=== PATIENT | female | born 1970 | race Caucasian/White ===

== ENCOUNTER 2021-02-05 08:34 | Emergency (ER) | payer OTHER, SELFPAY ==
[~2021-02-05] VITALS: Ht 160 cm; Wt 90.7 kg
[2021-02-05 08:34] VITALS: BP 184/84
--- NOTE | 2021-02-05 08:34 | NUR ---
Patient BIBA BLS, transferred to bed 1. RN evaluating the patient at bedside.
--- NOTE | 2021-02-05 08:55 | NUR ---
Note undone in EDM - 02/05/21 at 0915 by ABISAI RECEIVED 50Y/O FEMALE TO BED 11, C/O CHEST PAIN ONSET YESTERDAY, POINTS TO UPPER LEFT CHEST WALL, REPRODUCED WITH PRESSURE, ENDORSES PERIODS OF SOB, ENDORSES FEELING CLAMMY AT THIS TIME PATIENTS SKIN IS WARM AND DRY, RESP EVEN AND UNLABORED, CLEAR BREATH SOUNDS ON AUSCULTATION. ABDOMEN IS SOFT AND NON DISTENDED. MOVES ALL EXTREMITES AND WALKED IN WITH UPRIGHT STEADY GAIT. PATIENT ENDORSES FEELING ANXIOUS. PLACED ON BUCK PRESSER SHOWING NORMAL SINUS RHYTHM WITH RIGHT BUNDLE BRANCH BLOCK. TECH IN FOR EKG, DR PEREZ AT BEDSIDE FOR EXAM AND EVAL.
--- NOTE | 2021-02-05 09:25 | NUR ---
50 y/o F BIBA from home with c/o Covid-like symptoms. Patient A&Ox4, ambulatory, states productive cough, congestion, SOB, body aches, fever x 5 days s/p 1st Covid vaccine x 2 weeks ago. Patient also reports suprapubic pain 10/10, non-radiating. Patient unable to provide which vaccination received. Per EMS, pt states she called 911 d/t her SpO2 <94%. Patient presented with SpO2 98% on room air; blood pressure 184/84, RR even/unlabored; lung sounds CTA. Patient reports sick at home, states Tylenol prior to arrival with minor relief. Patient states nausea, denies dizziness, vomiting, diarrhea. patient monitor in place and pt placed into a gown. Bed locked in lowest position, side rails x 1, call light in reach. PMH/Sx/Meds: HTN NKA
--- NOTE | 2021-02-05 09:30 | NUR ---
Dr. Avila is evaluating patient at bedside.
--- NOTE | 2021-02-05 09:33 | NUR ---
EMT AT BEDSIDE FOR EKG
--- NOTE | 2021-02-05 09:36 | NUR ---
RT AT BEDSIDE
--- NOTE | 2021-02-05 09:40 | NUR ---
Covid armin swab, novel swab, RSV, Influenza swab collected, handed to CPT Sebastián.
--- NOTE | 2021-02-05 09:40 | NUR ---
RAD at bedside.
--- NOTE | 2021-02-05 10:10 | NUR ---
Lab at bedside for blood cultures and sample.
[2021-02-05 10:21] LABS: BASOPHILS # (AUTO) 0.1 K/uL (0.00-0.22); BASOPHILS % (AUTO) 0.4 % (0.0-2.0); EOSINOPHILS % (AUTO) 0.1 % (0.0-4.0); HEMATOCRIT 38.5 % (36-48); HEMOGLOBIN 13.1 g/dL (12.0-16.0); LYMPHOCYTES % (AUTO) 8.4 % (20.5-51.1); MEAN CORPUSCULAR HEMOGLOBIN 31 pg (27-31); MEAN CORPUSCULAR HGB CONC 34 g/dL (33-37); MEAN CORPUSCULAR VOLUME 89.3 fL (80-94); MONOCYTES # (AUTO) 0.4 K/uL (0.8-1.0); MONOCYTES % (AUTO) 2.9 % (1.7-9.3); NEUTROPHILS # (AUTO) 10.5 K/uL (1.8-7.7); NEUTROPHILS % (AUTO) 88.2 % (42.2-75.2); PLATELET COUNT (AUTO) 240 K/uL (140-450); RED CELL DISTRIBUTION WIDTH 13.8 % (11.6-13.7); WHITE BLOOD COUNT (AUTO) 11.9 K/uL (4.8-10.8)
[2021-02-05 10:22] LABS: RSV NEGATIVE (NEGATIVE)
--- NOTE | 2021-02-05 10:22 | NUR ---
Spoke with Marbella (daughter) [phone] Marbella translated on behalf of patient; patient states she feels hot and fatigued. SpO2 98% on room air. equipment monitor phototypesetting remains in place. Bed locked in lowest position, side rails x 1, call light in reach.
--- NOTE | 2021-02-05 10:22 | NUR ---
Provided bedpan for urine sample attempt.
[2021-02-05 10:36] LABS: PROTHROMBIN TIME 9.3 secs (10.8-13.4)
[2021-02-05 10:37] LABS: LACTATE DEHYDROGENASE 239 U/L (81-234)
[2021-02-05 10:39] LABS: ALBUMIN 3.5 g/dL (3.4-5.0); ANION GAP 14.8 (8-16); CARBON DIOXIDE 22.5 mmol/L (21-32); CREATININE 0.8 mg/dL (0.6-1.3); POTASSIUM 3.3 mmol/L (3.5-5.1); TOTAL BILIRUBIN 0.4 mg/dL (0.0-1.0)
[2021-02-05] MEDS ORDERED: AZITHROMYCIN 500 MG in DEXTROSE 5% 250 ML IV ONE (10:50)
[2021-02-05 10:53] LABS: C-REACTIVE PROTEIN QUANT 14.6 mg/dL (0.0-0.9)
--- NOTE | 2021-02-05 11:14 | NUR ---
UA collected via bedpan, handed to CPT Sebastián at ER bedside.
[2021-02-05] MEDS ORDERED: cefTRIAXone 1,000 MG VIAL ONE (11:15)
[2021-02-05] MEDS ORDERED: AZITHROMYCIN 500 MG INJ VIAL IV ONE (11:56)
--- NOTE | 2021-02-05 12:06 | NUR ---
Patient states nausea and pain 10/10, Dr. Avila made aware and orders placed.
[2021-02-05] MEDS ORDERED: MORPHINE SULFATE 4 MG/ML SYR ONE (12:08)
[2021-02-05] MEDS ORDERED: ONDANSETRON 4 MG/2 ML VIAL IVP ONE (12:10)
[2021-02-05] MEDS ORDERED: MORPHINE SULFATE 4 MG/ML SYR IVP ONE (12:10)
[2021-02-05 12:16] LABS: APPEARANCE,URINE CLEAR (CLEAR); BILIRUBIN,URINE NEGATIVE (NEGATIVE); BLOOD, URINE NEGATIVE (NEGATIVE); COLOR,URINE YELLOW (YELLOW); LEUKOCYTE ESTERASE ,URINE NEGATIVE (NEGATIVE); NITRITE, URINE NEGATIVE (NEGATIVE); PH,URINE 5.5 (5.0-9.0); UGLUCOSE 3+ (NEGATIVE)
--- NOTE | 2021-02-05 12:40 | NUR ---
GAVE REPORT TO JOSE CALVILLO FOR TRANSFER TO [facility]. PT TO BE PICKED UP [phone]
--- NOTE | 2021-02-05 12:43 | NUR ---
Patient reports positive relief to pain; 2/10.
--- NOTE | 2021-02-05 14:25 | NUR ---
[facility] AT BEDSIDE FOR TRANSPORT
[2021-02-05 14:40] VITALS: BP 161/84
--- NOTE | 2021-02-05 14:40 | NUR ---
Patient to be transferred to [facility] ER. Is being transferred due to INSURANCE REASONS. Receiving facility has accepting physician and available space. ER physician has signed transfer form. Patient or responsible green party has agreed to transfer and signed form. Patient belongings inventoried and will be sent with patient. Copy of nursing notes, lab reports, EKG, Physicians Orders and X-rays to be sent with patient. Report called to JOSE CALVILLO at receiving facility. [facility] ambulance service has been called for transfer.
--- NOTE | 2021-02-07 05:09 | NUR ---
LATE ENTRY- Positive COVID-19 test results were received from lab. A copy of the test results were placed in infection control mailbox.
== END 2021-02-05 14:40 | disposition short-term general hospital (02) ==
LOC: MED 08:34
DX: R50.9 Fever, unspecified (principal); Z20.822 Contact with and (suspected) exposure to COVID-19
CPT/HCPCS: 36600; 71045; 80053; 81003; 82550; 82728; 82803; 83605; 83615; 83880; 84484; 85025; 85379; 85384; 85610; 85730; 86140; 87086; 87420; 87426; 87804; 93005; 96365; 96367; 96375; 99291; J0456; J0696; J2270; J2405; U0003

== ENCOUNTER 2024-01-11 17:13 | Emergency (ER) | payer OTHER ==
[~2024-01-11] VITALS: Ht 162.6 cm; Wt 82.7 kg
[2024-01-11 17:39] VITALS: BP 160/85; PULSE 105; RESP 18; TEMP 98.6; O2SAT 98
[2024-01-11 18:10] LABS: BASOPHILS % (AUTO) 0.6 % (0.0-2.0); EOSINOPHILS # (AUTO) 0.2 K/uL (0-0.4); EOSINOPHILS % (AUTO) 2.1 % (0.0-4.0); HEMATOCRIT 38.1 % (36-48); HEMOGLOBIN 13.4 g/dL (12.0-16.0); LYMPHOCYTES # (AUTO) 2.1 K/uL (2.5-16.5); LYMPHOCYTES % (AUTO) 28.6 % (20.5-51.1); MEAN CORPUSCULAR HEMOGLOBIN 31 pg (27-31); MEAN CORPUSCULAR HGB CONC 35 g/dL (33-37); MEAN CORPUSCULAR VOLUME 86.9 fL (80-94); MONOCYTES # (AUTO) 0.5 K/uL (0.8-1.0); MONOCYTES % (AUTO) 6.6 % (1.7-9.3); NEUTROPHILS # (AUTO) 4.5 K/uL (1.8-7.7); NEUTROPHILS % (AUTO) 62.1 % (42.2-75.2); PLATELET COUNT (AUTO) 379 K/uL (140-450); RED BLOOD CELL COUNT(AUTO) 4.38 MIL/uL (4.20-5.40); RED CELL DISTRIBUTION WIDTH 13.2 % (11.6-13.7); WHITE BLOOD COUNT (AUTO) 7.3 K/uL (4.8-10.8)
[2024-01-11 18:50] LABS: APPEARANCE,URINE SL CLOUDY (CLEAR); BILIRUBIN,URINE NEGATIVE (NEGATIVE); BLOOD, URINE 3+ (NEGATIVE); LEUKOCYTE ESTERASE ,URINE NEGATIVE (NEGATIVE); NITRITE, URINE NEGATIVE (NEGATIVE); PROTEIN,URINE NEGATIVE (NEGATIVE); UGLUCOSE 3+ (NEGATIVE); UROBILINOGEN,URINE 0.2 EU/dL (0.2 - 1)
[2024-01-11 18:57] LABS: RBC,URINE TOO NUMEROUS TO COUN /HPF (0-5); WBC,URINE 0-5 /HPF (0-5)
[2024-01-11 18:58] LABS: BACTERIA,URINE FEW /HPF (None Seen); COLOR,URINE AMBER (YELLOW); SQUAMOUS EPITHELIAL CELL,UR 4-10 (MOD) /LPF (0-3 (FEW))
[2024-01-11 23:47] VITALS: BP 156/87; PULSE 100; RESP 18; TEMP 98.2; O2SAT 98
== END 2024-01-11 23:47 | disposition home or self-care (01) ==
LOC: MED 17:13
DX: D25.9 Leiomyoma of uterus, unspecified (principal); N93.9 Abnormal uterine and vaginal bleeding, unspecified; I10 Essential (primary) hypertension; Z79.899 Other long term (current) drug therapy
CPT/HCPCS: 36415; 76830; 81001; 85025; 99284

== ENCOUNTER 2024-01-16 12:00 | Emergency (ER) | payer OTHER ==
[~2024-01-16] VITALS: Ht 152.4 cm; Wt 83.5 kg
[2024-01-16 12:15] VITALS: BP 176/85; PULSE 100; RESP 18; TEMP 97; O2SAT 100
[2024-01-16 13:00] VITALS: O2SAT 100
[2024-01-16] MEDS ORDERED: ACET-8905 PO (13:22)
[2024-01-16] MEDS: MORPHINE SULFATE 4 MG/ML SYR IM ONE (13:36)
[2024-01-16] MEDS: KETOROLAC 30 MG/ML VIAL IM ONE (13:37)
== END 2024-01-16 13:50 | disposition home or self-care (01) ==
LOC: MED 12:00
DX: N93.9 Abnormal uterine and vaginal bleeding, unspecified (principal); D25.9 Leiomyoma of uterus, unspecified; I10 Essential (primary) hypertension; Z79.899 Other long term (current) drug therapy
CPT/HCPCS: 96372; 99284; J1885; J2270